=== PATIENT | female | born 1990 | race African-American/Black ===

== ENCOUNTER 2017-11-02 21:06 | Emergency (ER) | payer MEDICARE ==
[~2017-11-02] VITALS: Ht 160 cm; Wt 134.3 kg
[~2017-11-02 21:06] MED LIST: AMITRIPTYLINE H25 MG PO; FERROUS SULFAT325 M1 PO; LISINOPRIL5 MG PO; METFORMIN HCL500 MG PO; NOVOLIN N100 UNIT/1 SQ; OMEPRAZOLE20 M1 PO; PROVENTIL HFA6.7 GM PO; SYMBICORT 16010.2 GM INH
--- OUTSIDE RECORDS SUMMARY | 2017-11-02 21:09 | XMS REPORT ---
[facility] Address Unknown Phone Unavailable Care Team Providers Care Family Manager Name Role Phone Unavailable Unavailable Problems This patient has no known problems. Allergies, Adverse Reactions, Alerts This patient has no known allergies or adverse reactions. Medications This patient has no known medications. Encounters Start Date/Time End Date/Time Encounter Type Admission Type Attending [facility] Facility Care Department Encounter ID 2017-11-30 00:00:00 2017-11-30 00:00:00 Outpatient [facility] [id number] 2017-11-01 00:00:00 2017-11-01 00:00:00 Outpatient [facility] [id number] 2017-11-01 00:00:00 2017-11-01 00:00:00 Outpatient [facility] [id number] 2017-11-01 00:00:00 2017-11-01 00:00:00 Outpatient [facility] [id number] 2017-11-01 00:00:00 2017-11-01 00:00:00 Outpatient [facility] [id number] 2017-10-31 00:00:00 2017-10-31 00:00:00 Outpatient [facility] [id number] 2017-10-05 13:25:52 2017-10-05 13:25:52 Outpatient [facility] [id number] 2017-09-21 13:10:26 2017-09-21 13:10:26 Outpatient [facility] [id number] 2017-09-20 14:09:57 2017-09-20 14:09:57 Outpatient [facility] [id number] 2017-09-14 09:45:43 2017-09-14 09:45:43 Outpatient [facility] [id number] 2017-09-13 00:00:00 2017-09-13 00:00:00 Outpatient [facility] [id number] 2017-09-13 00:00:00 2017-09-13 00:00:00 Outpatient [facility] [id number] 2017-09-06 15:40:21 2017-09-06 15:40:21 Outpatient [facility] [id number] 2017-08-17 00:00:00 2017-08-17 00:00:00 Outpatient [facility] [id number] 2017-07-15 00:00:00 2017-07-15 00:00:00 Outpatient [facility] [id number] 2017-07-12 00:00:00 2017-07-12 00:00:00 Outpatient [facility] [id number] 2017-05-25 00:00:00 2017-05-25 00:00:00 Outpatient [facility] [id number] 2017-05-20 10:31:27 2017-05-20 10:31:27 Outpatient [facility] [id number] 2017-05-16 14:26:14 2017-05-16 14:26:14 Outpatient [facility] [id number]
--- OUTSIDE RECORDS SUMMARY | 2017-11-02 21:09 | XMS REPORT | Clinical Summary ---
Author Author [facility] Organization [facility] Address Unknown Phone Unavailable Care Team Providers Care Security Compliance Engineer Name Role Phone Asked, Pcp PCP Unavailable Allergies Active Allergy Reactions Severity Noted Date Comments Cyclosporine Itching, Rash Low 08/05/2009 Morphine Rash Low 05/16/2017 Current Medications Prescription Sig. Disp. Refills Start End Date Status Date lisinopril Take by mouth. 12/03/19 Active (PRINIVIL,ZESTRIL) 5 mg 17 tablet codeine-guaifenesin Take by mouth. 12/09/19 Active (GUAIFENESIN AC) 10-100 17 mg/5 mL liquid nebulizer accessories by [facility] [place]Non-Drug; Combo 12/09/19 Active misc Route) route Dx J45.40. 17 budesonide-formoterol Inhale. 12/01/19 Active (SYMBICORT) 160-4.5 17 mcg/actuation inhaler traZODone (DESYREL) 100 Take by mouth. 09/22/19 Active MG tablet 17 omeprazole (PriLOSEC) 20 Take by mouth. 10/12/19 Active MG capsule 17 ciclesonide 37 Inhale 1 spray by each 12/07/19 Active mcg/actuation HFA aerosol nostril daily 17 inhaler Therapeutic substitution for Nasonex per P&T pen needle, diabetic 30 Inject insulin once 06/17/20 Active gauge x 1/3" needle daily. 16 blood sugar diagnostic Check fasting blood and 2 06/15/20 Active strips strip test strips hour post-prandial sugars 16 daily- on insulin. ferrous sulfate 325 (65 Take by mouth. 12/09/19 Active FE) MG tablet 16 PARoxetine (PAXIL) 20 MG Take by mouth. 06/02/20 Active tablet 15 blood-glucose meter misc Use as directed.. 06/28/20 Active 14 albuterol (PROAIR Inhale. 12/01/19 Active HFA,PROVENTIL 17 HFA,VENTOLIN HFA) 90 mcg/actuation inhaler albuterol (ACCUNEB) 2.5 Inhale. 12/09/19 Active mg /3 mL (0.083 %) 17 nebulizer solution pregabalin (LYRICA) 50 MG Take by mouth. 06/15/20 Active capsule 16 blood sugar diagnostic Use as directed to test 100 strip 0 05/15/20 Active strips (glucose blood) blood sugar 17 strip test strips albuterol (PROVENTIL) 2.5 INHALE 1 VIAL BY MOUTH 6 12/09/19 05/15/20 Discontin mg /3 mL (0.083 %) EVERY 6 HOURS NEEDED 17 17 ued nebulizer solution FOR WHEEZING OR SHORTNESS OF BREATH levoFLOXacin (LEVAQUIN) TAKE 1 TABLET EVERY DAY 0 12/08/19 03/30/20 Discontin 750 MG tablet BY MOUTH UNTILL ALL IS 17 17 ued GONE insulin detemir (LEVEMIR) Inject 35 Units under the 03/31/20 Discontin 100 unit/mL injection skin nightly. 17 ued traMADol (ULTRAM) 50 mg Take 50 mg by mouth 2 04/29/20 Discontin tablet (two) times a day. 17 ued metFORMIN (GLUCOPHAGE) Take 1,000 mg by mouth 2 0 03/24/20 05/15/20 Discontin 500 mg tablet (two) times a day. 17 17 ued LYRICA 50 mg capsule Take 50 mg by mouth 2 0 03/24/20 05/15/20 Discontin (two) times a day. 17 17 ued insulin detemir (LEVEMIR) Inject 35 Units under the 4.9 mL 0 03/31/20 03/31/20 Discontin 100 unit/mL injection skin 2 (two) times a day 17 17 ued for 7 days. metoclopramide (REGLAN) 5 Infuse 1 mL (5 mg total) 2 mL 0 03/31/20 03/31/20 Discontin mg/mL injection into a venous catheter 17 17 ued every 6 (six) hours as needed for nausea or vomiting for up to 7 days. insulin DETEMIR (LEVEMIR Inject 35 Units under the 3 mL 0 03/31/20 04/07/20 FLEXTOUCH) 100 unit/mL (3 skin 2 (two) times a day 17 17 mL) insulin pen for 7 days. clindamycin (CLEOCIN HCL) Take 1 capsule (300 mg 21 capsule 0 05/06/20 300 MG capsule total) by mouth 3 (three) 17 17 times a day for 7 days. traMADol (ULTRAM) 50 mg Take 1 tablet (50 mg 10 tablet 0 04/29/20 tablet total) by mouth every 6 17 17 (six) hours as needed for moderate pain for up to 7 days. melatonin 1 mg tablet Take 2 tablets (2 mg 60 tablet 0 04/30/20 total) by mouth nightly 17 17 for 30 days. acetaminophen-codeine Take 1-2 tablets by mouth 20 tablet 0 05/02/20 05/09/20 (TYLENOL WITH CODEINE #3) every 6 (six) hours as 17 17 300-30 mg per tablet needed for mild pain or moderate pain (no driving) for up to 7 days. sulfamethoxazole-trimetho Take 2 tablets by mouth 2 40 tablet 0 05/15/20 Discontin prim (BACTRIM DS) 800-160 (two) times a day for 10 17 17 ued mg per tablet days. insulin ASPART (NovoLOG) Inject under the skin. 11/11/19 05/22/20 Discontin 100 unit/mL insulin pen 17 17 ued metFORMIN (GLUCOPHAGE) Take by mouth. 11/07/19 05/15/20 Discontin 500 mg tablet 16 17 ued insulin DETEMIR (LEVEMIR Inject 35 Units under the 21 mL 0 05/15/20 06/14/20 FLEXTOUCH) 100 unit/mL (3 skin 2 (two) times a day 17 17 mL) insulin pen for 30 days. insulin syringe-needle 1 Syringe 2 (two) times a 100 each 0 05/15/20 06/14/20 U-100 syringe day for 30 days. 17 17 metFORMIN (GLUCOPHAGE) Take 2 tablets (1,000 mg 120 tablet 0 05/15/20 06/14/20 500 mg tablet total) by mouth 2 (two) 17 17 times a day with meals for 30 days. azithromycin (ZITHROMAX) Take first 2 tablets 6 tablet 0 05/15/20 250 MG tablet together, then 1 every day until finished. insulin ASPART (NovoLOG) Inject 5 Units under the 4.5 mL 0 05/22/20 06/21/20 100 unit/mL insulin pen skin 3 (three) times a day with meals for 30 days. keTOROlac (TORadol) 10 mg Take 1 tablet (10 mg 20 tablet 0 05/22/20 05/27/20 tablet total) by mouth every 6 (six) hours as needed for moderate pain for up to 5 days. Active Problems Problem Noted Date Lower abdominal pain 03/31/2017 Non-intractable vomiting with nausea 03/31/2017 CAROLIN (obstructive sleep apnea) 03/31/2017 Chronic asthma 03/31/2017 Acute cystitis without hematuria 03/31/2017 Hyperglycemia 03/30/2017 SOB (shortness of breath) 01/21/2017 Chest pain 01/21/2017 Encounters Date Type Specialty Care Team Description 05/22/2017 Emergency Emergency Medicine Demetria Durbin MD Chest pain, unspecified type (Primary Dx) 05/14/2017 Emergency Emergency Medicine Rehrer, Rubio Henriquez, Hyperglycemia (Primary - Dx); 05/15/2017 Bronchitis 05/14/2017 Emergency Emergency Medicine Abad Arriaga, Hyperglycemia (Primary DO Dx); Dyspnea, unspecified type; Secondary hypertension 05/05/2017 Emergency Emergency Medicine Maribell Burt MD Complicated abscess (Primary Dx); Elevated blood pressure 05/02/2017 Emergency Emergency Medicine Leonor Escobar MD Abscess of left axilla (Primary Dx); Hyperglycemia; Dehydration; Hyponatremia; Tachycardia 04/29/2017 Emergency Emergency Medicine Leonor Escobar MD Sepsis, due to - unspecified organism 04/30/2017 (Primary Dx); Abscess of arm, left; Type 2 diabetes mellitus with hyperglycemia, with long-term current use of insulin; Tachycardia; Leukocytosis, unspecified type 03/30/2017 Emergency General Internal Medicine Carmen Murrieta MD Hyperglycemia (Primary - Alisha Valdez MD Dx) 03/31/2017 Gladis Corbett MD 01/21/2017 Office Visit Cardiology Yannick Escudero MD SOB (shortness of breath) (Primary Dx); Chest pain, unspecified type after 11/01/2016 Family History Medical History Relation Name Comments Diabetes Father Heart failure Father Diabetes Mother Heart failure Mother Relation Name Status Comments Father Alive Mother Alive Social History Tobacco Use Types Packs/Day Years Used Date Never Smoker Smokeless Tobacco: Never Used Alcohol Use Drinks/Week oz/Week Comments No Sex Assigned at Date Recorded Not on file Last Filed Vital Signs Vital Sign Reading Time Taken Blood Pressure 105/72 05/22/2017 10:35 PM CDT Pulse 74 05/22/2017 10:45 PM CDT Temperature 36.9 C (98.4 F) 05/22/2017 10:35 PM CDT Respiratory Rate 21 05/22/2017 10:45 PM CDT Oxygen Saturation 96% 05/22/2017 10:35 PM CDT Inhaled Oxygen - - Concentration Weight 144 kg (317 lb 7.4 oz) 05/14/2017 11:51 PM CDT Height 160 cm (5' 3") 05/22/2017 7:14 PM CDT Body Mass Index 56.24 05/14/2017 11:51 PM CDT Plan of Treatment Health Maintenance Due Date Last Done Comments FOOT EXAM 02/07/1998 OPHTHALMOLOGY EXAM 02/07/1998 URINE MICROALBUMIN 02/07/1998 PAP SMEAR 02/07/2009 INFLUENZA VACCINE 03/15/2017 Procedures Procedure Name Priority Date/Time Associated Diagnosis Comments KS CRITICAL CARE, E/M Routine 05/15/2017 Results for this 30-74 MINUTES 3:17 AM CDT procedure are in the results section. KS DRAIN SKIN ABSCESS Routine 05/10/2017 Results for this SIMPLE 9:40 PM CDT procedure are in the results section. GENERAL Routine 05/05/2017 Results for this 6:49 PM CDT procedure are in the results section. KS DRAIN SKIN ABSCESS Routine 05/01/2017 Results for this SIMPLE 12:32 PM CDT procedure are in the results section. after 11/01/2016 Results * POC glucose (05/22/2017 10:31 PM) Only the most recent of 13 results within the time period is included. Component Value Ref Range POC glucose 476 (HH) 65 - 99 mg/dL Comment: [facility] Notified RN Meter ID: [id number] Cigar Head Pegger: Maritza Knight Performing Laboratory [facility] DEPARTMENT OF PATHOLOGY AND GENOMIC MEDICINE [address] [place] [address] * CT Chest Wo Contrast (05/22/2017 9:29 PM) Specimen Performing Laboratory [facility] [address] [place] [address] Narrative EXAMINATION: CT CHEST WO CONTRAST CLINICAL HISTORY: abnormal cxr TECHNIQUE: Multiple axial images were obtained from the lung apices to the lung bases without the administration of intravenous contrast.The lack of intravenous contrast reduces the sensitivity of detecting solid organ disease and evaluating vasculature. High-resolution, prone, expiratory, coronal, and sagittal reformats were obtained.CT imaging was performed with iterative reconstruction technique and/ or automated exposure control to reduce radiation dose. COMPARISON: None. FINDINGS: Heart size is normal. The aorta measures within normal limits.The pulmonary artery is within normal limits. There is no enlarged mediastinal lymph node. No pulmonary infiltrate or mass is seen. Decreased attenuation of the liver is compatible fatty infiltration. Spleen, pancreas, adrenals, and kidneys are within normal limits in their visible portions. Suspicious osseous lesion is not seen. IMPRESSION: No acute pulmonary process. Procedure Note Interface, Radiology Results Incoming - 05/22/2017 9:36 PM CDT EXAMINATION: CT CHEST WO CONTRAST CLINICAL HISTORY: abnormal cxr TECHNIQUE: Multiple axial images were obtained from the lung apices to the lung bases without the administration of intravenous contrast.The lack of intravenous contrast reduces the sensitivity of detecting solid organ disease and evaluating vasculature. High-resolution, prone, expiratory, coronal, and sagittal reformats were obtained.CT imaging was performed with iterative reconstruction technique and/ or automated exposure control to reduce radiation dose. COMPARISON: None. FINDINGS: Heart size is normal. The aorta measures within normal limits. The pulmonary artery is within normal limits. There is no enlarged mediastinal lymph node. No pulmonary infiltrate or mass is seen. Decreased attenuation of the liver is compatible fatty infiltration. Spleen, pancreas, adrenals, and kidneys are within normal limits in their visible portions. Suspicious osseous lesion is not seen. IMPRESSION: No acute pulmonary process. * XR Chest 1 Vw Portable (05/22/2017 7:58 PM) Only the most recent of 2 results within the time period is included. Specimen Performing Laboratory [facility] [address] [place] [address] Narrative Examination:XR CHEST 1 VW PORTABLE Clinical history:"Chest Pain" Comparison:05/14/2017 IMPRESSION: There are no new alveolar opacities within either lung.Bibasilar opacities consistent with atelectasis versus small infiltrates appear unchanged. No pneumothoraces are identified. The cardiomediastinal silhouette is unchanged. The bones of the chest are unchanged. [facility]-[id number] Procedure Note Interface, Radiology Results Incoming - 05/22/2017 8:05 PM CDT Examination: XR CHEST 1 VW PORTABLE Clinical history: "Chest Pain" Comparison: 05/14/2017 IMPRESSION: There are no new alveolar opacities within either lung. Bibasilar opacities consistent with atelectasis versus small infiltrates appear unchanged. No pneumothoraces are identified. The cardiomediastinal silhouette is unchanged. The bones of the chest are unchanged. [facility]-[id number] * Estimated GFR (05/22/2017 7:42 PM) Only the most recent of 7 results within the time period is included. Component Value Ref Range GFR Non Af Amer >90 mL/min/1.73 m2 GFR Af Amer >90 mL/min/1.73 m2 Comment: Chronic kidney disease: <60 mL/min/1.73m2 Kidney failure: <15 mL/min/1.73m2 The estimated GFR is calculated from the IDMS-traceable Modification of Diet in Renal Disease Equation. The accuracy of the calculation is poor when the creatinine is normal. Calculated values >90 mL/min/1.73m2 are not reported. This equation has not been validated in children (<18 years), women, the elderly (>70 years), or ethnic groups other than Caucasians and Americans. Specimen Performing Laboratory Plasma specimen DEPARTMENT OF PATHOLOGY AND GENOMIC MEDICINE, [facility] [address] [place] [address] [place] [address] * Troponin, I-Stat (05/22/2017 7:42 PM) Component Value Ref Range Troponin, I-Stat 0.00 0.00 - 0.08 ng/mL Comment: 0.09 - 1.49 ng/ml May indicate increased risk of acute coronary syndrome. >=1.5 ng/ml Consistent with acute myocardial infarction. The diagnostic value of a single normal or non-diagnostic result is questionable. Serial samples at 2-6 hour intervals are required to rule out acute myocardial injury. Specimen Performing Laboratory Plasma specimen [facility] OF PATHOLOGY AND GENOMIC MEDICINE[address] [address] * B natriuretic pep, I-Stat (05/22/2017 7:42 PM) Component Value Ref Range BNP, I-Stat <20 0 - 100 pg/mL Specimen Performing Laboratory Blood [facility] PATHOLOGY AND [employer] (acquired by [employer]) MEDICINE[address] [address] * CBC with platelet and differential (05/22/2017 7:42 PM) Only the most recent of 5 results within the time period is included. Component Value Ref Range WBC 10.76 4.50 - 11.00 k/uL RBC 4.47 4.20 - 5.50 m/uL HGB 11.3 (L) 12.0 - 16.0 g/dL HCT 33.8 (L) 37.0 - 47.0 % MCV 75.6 (L) 82.0 - 100.0 fL MCH 25.3 (L) 27.0 - 34.0 pg MCHC 33.4 31.0 - 37.0 g/dL RDW - SD 38.7 37.0 - 55.0 fL MPV 10.2 8.8 - 13.2 fL Platelet count 378 150 - 400 k/uL Neutrophils 67.1 39.0 - 69.0 % Lymphocytes 25.7 25.0 - 45.0 % Monocytes 6.3 0.0 - 10.0 % Eosinophils 0.6 0.0 - 5.0 % Basophils 0.3 0.0 - 1.0 % Specimen Performing Laboratory Blood [facility] OF PATHOLOGY AND GENOMIC MEDICINE[address] [address] * Creatine kinase, total (CPK) (05/22/2017 7:42 PM) Component Value Ref Range Creatine kinase 99 30 - 190 U/L Specimen Performing Laboratory Plasma specimen [facility] OF PATHOLOGY AND GENOMIC MEDICINE[address] [address] * Comprehensive metabolic panel (05/22/2017 7:42 PM) Only the most recent of 5 results within the time period is included. Component Value Ref Range Sodium 131 128 - 145 mEq/L Potassium 4.3 3.6 - 5.1 mEq/L CO2 24 18 - 33 mEq/L Chloride 98 98 - 108 mEq/L Glucose 651 (HH) 73 - 118 mg/dL Comment: Results called to and read back by DR. DEMETRIA DURBIN @ [facility] 05/22/2017 20:00 by EX Calcium 8.5 8.0 - 10.3 mg/dL BUN 9 7 - 22 mg/dL Creatinine 0.5 (L) 0.6 - 1.2 mg/dL Alkaline phosphatase 68 42 - 141 U/L ALT 24 10 - 47 U/L AST 21 11 - 38 U/L Total bilirubin 0.4 0.2 - 1.6 mg/dL Albumin 2.9 (L) 3.3 - 5.5 g/dL Protein 7.1 6.4 - 8.1 g/dL Anion gap 9 7 - 15 mEq/L Comment: Starting from November , anion gap calculation no longer incorporates potassium. Please note the change. A/G ratio 0.7 0.7 - 3.8 Specimen Performing Laboratory Plasma specimen DEPARTMENT OF PATHOLOGY AND GENOMIC MEDICINE, [facility] [address] [place] [address] * ECG 12 lead (05/22/2017 7:18 PM) Only the most recent of 3 results within the time period is included. Component Value Ref Range Ventricular rate 87 Atrial rate 87 KS interval 134 QRSD interval 70 QT interval 362 QTC interval 435 P axis 1 52 QRS axis 1 38 T wave axis 20 EKG impression Normal sinus rhythm-Low voltage QRS-Borderline ECG- Specimen Performing Laboratory [facility] [address] [place] [address] * CRITICAL CARE (05/15/2017 3:17 AM) Judy Arriaga DO 05/15/20173:17 AM Critical Care Performed by: ABAD ARRIAGA Authorized by: ABAD ARRIAGA Critical care provider statement: Critical care time (minutes):40 Critical care time was exclusive of:Separately billable procedures and treating other patients Critical care was necessary to treat or prevent imminent or life-threatening deterioration of the following conditions:Endocrine crisis Critical care was time spent personally by me on the following activities:Blood draw for specimens, development of treatment plan with patient or surrogate, evaluation of patient's response to treatment, examination of patient, obtaining history from patient or surrogate, vascular access procedures, review of old charts, re-evaluation of patient's condition, pulse oximetry, ordering and review of radiographic studies, ordering and review of laboratory studies and ordering and performing treatments and interventions Esvin 'yes' if you are taking over critical care for this patient from another provider.: no * Basic metabolic panel (05/15/2017 12:16 AM) Only the most recent of 2 results within the time period is included. Component Value Ref Range Glucose 598 (HH) 73 - 118 mg/dL Comment: Results called to and read back by DR. RUBIO GREEN at [facility] 05/15/2017 00:31 by MARIANA. BUN 8 7 - 22 mg/dL Calcium 9.4 8.0 - 10.3 mg/dL Creatinine 0.8 0.6 - 1.2 mg/dL Sodium 131 128 - 145 mEq/L Potassium 4.2 3.6 - 5.1 mEq/L Comment: Specimen moderately hemolyzed PER DR. RUBIO GREEN RESULTS CAN BE RELEASE 05/15/2017 00:36 EX Corrected result; previously reported as 4.2 on 05/15/2017 at 00:32 by ADA Chloride 94 (L) 98 - 108 mEq/L CO2 23 18 - 33 mEq/L Anion gap 14 7 - 15 mEq/L Comment: Starting from November , anion gap calculation no longer incorporates potassium. Please note the change. Specimen Performing Laboratory Plasma specimen DEPARTMENT OF PATHOLOGY AND GENOMIC MEDICINE, [facility] [address] [place] [address] [place] [address] * Urinalysis screen and microscopy, with reflex to culture (05/14/2017 10:35 PM) Only the most recent of 2 results within the time period is included. Component Value Ref Range Specimen site Clean catch Color, UA Yellow Appearance, UA Clear Specific gravity, UA 1.010 1.001 - 1.035 pH, UA 6.0 5.0 - 8.5 Protein, UA Negative Negative Glucose, UA 2+ (A) Negative Ketones, UA Negative Negative Bilirubin, UA Negative Negative Blood, UA Moderate (A) Negative Nitrite, UA Negative Negative Urobilinogen, UA <2.0 <2.0 Leukocyte esterase, UA Negative Negative Epithelial cells, UA <1 /HPF WBC, UA None seen 0 - 4 /HPF RBC, UA 12 (H) 0 - 2 /HPF Bacteria, UA None seen None seen Yeast, UA None seen Yeast with pseudohyphae, None seen UA Specimen Performing Laboratory Urine DEPARTMENT OF PATHOLOGY AND GENOMIC MEDICINE, [address] [place] [address] * hCG qualitative, urine screen (05/14/2017 10:35 PM) Only the most recent of 2 results within the time period is included. Component Value Ref Range hCG qualitative, urine NegativeComment: Sensitivity of HCG test: 25 mIU/mL Specimen Performing Laboratory Urine DEPARTMENT OF PATHOLOGY AND GENOMIC MEDICINE[address] [place] [address] * Bedside glucose (05/14/2017 10:32 PM) Specimen Performing Laboratory Blood * Beta hydroxybutyrate (05/14/2017 10:08 PM) Only the most recent of 2 results within the time period is included. Component Value Ref Range Beta hydroxybutyrate 0.12Comment: Test performed at [facility] 0.02 - 0.27 mmol/L [facility]. Specimen Performing Laboratory Serum [facility] DEPARTMENT OF PATHOLOGY AND GENOMIC MEDICINE [address] [place] [address] * XR Chest 2 Vw (05/14/2017 9:59 PM) Specimen Performing Laboratory [facility] [address] [place] [address] Narrative EXAMINATION: XR CHEST 2 VW CLINICAL HISTORY: SHORTNESS OF BREATH COMPARISON:03/31/2017 chest x-ray. IMPRESSION: The lungs are clear. No pleural effusion or pneumothorax. The cardiomediastinal silhouette is normal. No acute osseous abnormalities. [facility]-[id number] Procedure Note Interface, Radiology Results Incoming - 05/14/2017 10:03 PM CDT EXAMINATION: XR CHEST 2 VW CLINICAL HISTORY: SHORTNESS OF BREATH COMPARISON: 03/31/2017 chest x-ray. IMPRESSION: The lungs are clear. No pleural effusion or pneumothorax. The cardiomediastinal silhouette is normal. No acute osseous abnormalities. [facility]-[id number] * INCISION AND DRAINAGE (05/10/2017 9:40 PM) Narrative Leonor Escobar MD 05/10/20179:40 PM I&D/Aspiration/Amputation Performed by: LEONOR ESCOBAR Authorized by: LEONOR ESCOBAR Consent: Consent obtained:Verbal Consent given by:Patient Risks discussed:Incomplete drainage, infection, pain and bleeding Alternatives discussed:No treatment Location: Type:Abscess Location: left axilla. Pre-procedure details: Procedure prep: Normal Saline. Sedation: Sedation type: None. Anesthesia (see MAR for exact dosages): Anesthesia method: Patient declined lidocaine. Procedure details: Complexity:Simple Needle aspiration: No Incision types:Exploration (Trace blood) Size (cm):1 Wound management:Irrigated with saline (1L NS) Drainage:Purulent Drainage amount:Copious Packing material: plain gauze. Post-procedure details: Patient tolerance of procedure:Tolerated well, no immediate complications * GENERAL (05/05/2017 6:49 PM) Narrative Maribell Burt MD 05/05/20176:49 PM General Performed by: HANK THAKUR Authorized by: MARIBELL BURT Consent: Consent obtained:Verbal Consent given by:Patient Indications: Indications:Repacking site of I&D Pre-procedure details: Procedure prep: Saline irrigation. Anesthesia (see MAR for exact dosages): Anesthesia method:None Post-procedure details: Patient tolerance of procedure:Tolerated well, no immediate complications Comments: The cavity was packed with half-inch plain gauze. * Blood culture, aerobic & anaerobic (05/02/2017 11:55 AM) Only the most recent of 2 results within the time period is included. Component Value Ref Range Blood culture isolate No growth after 5 days of incubation. Comment: Specimen Information Specimen Source: Blood Specimen Site: Hand, right Specimen Performing Laboratory Blood - Hand, right [facility] DEPARTMENT OF PATHOLOGY AND GENOMIC MEDICINE [address] [place] [id number] * Lactic acid level (05/02/2017 11:55 AM) Only the most recent of 2 results within the time period is included. Component Value Ref Range Lactic acid 2.1 0.5 - 2.2 mmol/L Specimen Performing Laboratory Blood DEPARTMENT OF PATHOLOGY AND GENOMIC MEDICINE, [address] [place] [address] * INCISION AND DRAINAGE (05/01/2017 12:32 PM) Narrative Leonor Escobar MD 05/01/2017 12:32 PM I&D/Aspiration/Amputation Performed by: TRUDY ROGERS Authorized by: LEONOR ESCOBAR Consent: Consent obtained:Verbal Consent given by:Patient Risks discussed:Bleeding, incomplete drainage and infection Alternatives discussed:No treatment Location: Type:Abscess Location:Upper extremity Upper extremity location: left axilla Pre-procedure details: Skin preparation:Betadine Anesthesia (see MAR for exact dosages): Anesthesia method:Local infiltration Local anesthetic:Lidocaine 1% w/o epi Procedure details: Complexity:Simple Needle aspiration: No Incision types:Single straight Scalpel blade:11 Wound management:Probed and deloculated Drainage:Serous Drainage amount:Copious Wound treatment:Wound left open Packing materials:1/2 in iodoform gauze Post-procedure details: Patient tolerance of procedure:Tolerated well, no immediate complications * Urine drugs of abuse screen (03/31/2017 8:23 AM) Component Value Ref Range Amphetamine screen, urine Negative Barbiturate screen, urine Negative Benzodiazepine screen, Negative urine Cannabinoid screen, urine Negative Cocaine screen, urine Negative Methadone metabolite Negative (EDDP), urine Opiates screen, urine Positive (A) Oxycodone screen, urine Negative Phencyclidine screen, Negative urine Tricyclic screen, urine Negative Comment: Drug screen minimum concentration of detectability Amphetamines 1000 ng/mL Barbiturates 200 ng/mL Benzodiazepines 300 ng/mL Cocaine 300 ng/mL Methadone 3 00 ng/mL Opiates 300 ng/mL Oxycodone 3 00 ng/mL Phencyclidine 25 ng/mL Cannabinoids 50 ng/mL Tricyclics 1000 ng/mL Negative test results indicates presumptive evidence of lack of clinically significant drug concentration in this urine specimen. Positive test results are presumptive evidence of clinically significant drug concentration in this urine specimen. Testing performed for medical purposes only. Specimen Performing Laboratory Urine [facility] DEPARTMENT OF PATHOLOGY AND GENOMIC MEDICINE [address] [place] [id number] * Gram stain (03/31/2017 8:14 AM) Component Value Ref Range Gram stain result No WBC's or organisms seen. Comment: Specimen Information Specimen Source: Urine Specimen Site: See UA Specimen Performing Laboratory Urine [facility] DEPARTMENT OF PATHOLOGY AND GENOMIC MEDICINE [address] [place] [id number] * Urine culture (03/31/2017 8:14 AM) Component Value Ref Range Urine culture isolate Staphylococcus aureus 10-4 cfu/ml (A) Comment: Specimen Information Specimen Source: Urine Specimen Site: See UA Urine culture isolate Mixed Gram positive viviane 10-2 cfu/ml (A) Specimen Performing Laboratory Urine [facility] DEPARTMENT OF PATHOLOGY AND GENOMIC MEDICINE [address] [place] [id number] Organism Antibiotic Method Susceptibility Staphylococcus aureus Ampicillin JEAN-PAUL mcg/mL: Resistant Staphylococcus aureus Clindamycin JEAN-PAUL <=0.5 mcg/mL: Susceptible Staphylococcus aureus Erythromycin JEAN-PAUL >4 mcg/mL: Resistant Staphylococcus aureus Nitrofurantoin JEAN-PAUL <=16 mcg/mL: Susceptible Staphylococcus aureus Levofloxacin JEAN-PAUL >4 mcg/mL: Resistant Staphylococcus aureus Linezolid JEAN-PAUL 2 mcg/mL: Susceptible Staphylococcus aureus Oxacillin JEAN-PAUL 0.5 mcg/mL: Susceptible Staphylococcus aureus Penicillin G JEAN-PAUL >1 mcg/mL: Resistant Staphylococcus aureus Rifampin JEAN-PAUL <=0.5 mcg/mL: Susceptible Staphylococcus aureus Trimethoprim/Sulfamethoxa JEAN-PAUL <=0.5/9.5 mcg/mL: zole Susceptible Staphylococcus aureus Tetracycline JEAN-PAUL <=0.5 mcg/mL: Susceptible Staphylococcus aureus Vancomycin JEAN-PAUL 1 mcg/mL: Susceptible * Troponin (03/31/2017 5:20 AM) Component Value Ref Range Troponin <0.30 0.00 - 0.30 ng/mL Comment: 0.30 - 1.49 ng/ml May indicate increased risk of acute coronary syndrome. >=1.5 ng/ml Consistent with acute myocardial infarction. The diagnostic value of a single normal or non-diagnostic result is questionable. Serial samples at 2-6 hour intervals are required to rule out acute myocardial injury. Specimen Performing Laboratory Plasma specimen [facility] DEPARTMENT OF PATHOLOGY AND [facility] [address] [place] [phone] * Phosphorus level (03/31/2017 5:20 AM) Component Value Ref Range Phosphorus 4.2 2.4 - 4.5 mg/dL Specimen Performing Laboratory Plasma specimen [facility] DEPARTMENT OF PATHOLOGY AND GENOMIC MEDICINE [address] [place] [phone] * Magnesium level (03/31/2017 5:20 AM) Component Value Ref Range Magnesium 1.7 1.6 - 2.6 mg/dL Specimen Performing Laboratory Plasma specimen [facility] DEPARTMENT OF PATHOLOGY AND GENOMIC MEDICINE [address] [place] [phone] * Lipase level (03/31/2017 5:20 AM) Component Value Ref Range Lipase 24 13 - 60 U/L Specimen Performing Laboratory Plasma specimen [facility] DEPARTMENT OF PATHOLOGY AND GENOMIC MEDICINE [address] [place] [phone] * Hemoglobin A1c (03/31/2017 5:20 AM) Component Value Ref Range Hemoglobin A1C 12.3 (H) 4.0 - 5.6 % Comment: HbA1c cutoffs for diagnosing diabetes: 4.0% - 5.6%=normal 5.7% - 6.4%=increased risk for diabetes (prediabetes) >=6.5%=diabetes Goals for glycemic control (ADA 2016) < 7.0% Target for non adults with diabetes. More or less stringent targets may be appropriate for individual patients. <7.5% Target for Children and adolescents with type 1 diabetes. A hemoglobin variant peak was detected in the A1c HPLC study. This peak did not seem to interfere with the A1c percentage calculation. However, if clinically indicated, hemoglobin electrophoresis should be ordered to further evaluate this finding. This variant may impact the red blood cell turnover rate. The clinical utility of Hemoglobin A1c measurement for monitoring long-term glucose control in the setting of hemoglobin variants has not been well characterized. Specimen Performing Laboratory [facility] DEPARTMENT OF PATHOLOGY AND GENOMIC MEDICINE [address] [place] [phone] * Lipid panel (03/31/2017 5:20 AM) Component Value Ref Range Cholesterol 159 <200 mg/dL Triglycerides 140 <150 mg/dL HDL cholesterol 36 (L) >40 mg/dL LDL cholesterol 101 (H)Comment: Result obtained by direct LDL <100 mg/dL measurement Lipid panel SeeBelow interpretation Comment: Total Cholesterol (mg/dL) <200 Desirable 200-239 Borderline-high >=240 High Triglycerides (mg/dL) <150 Normal 150-199 Borderline-high 200-499 High >=500 Very high HDL Cholesterol (mg/dL) <40 Low (male) <40 Low (female) LDL Cholesterol (mg/dL) <100 Optimal 100-129 Near or above optimal 130-159 Borderline-high 160-189 High >=190 Very high Risk Catergories that modify LDL goals. Risk Catergories LDL goal (mg/dL) CHD and CHD risk equivalent <100 (10-year risk >20%) Multiple (2+) risk factors <130 (10-year risk=<20%) 0-1 risk factors <160 (<10-year risk) Defining levels of lipids in metabolic syndrome Triglycerides >=150 mg/dL HDL Cholesterol Men <40 mg/dL Women <40 mg/dL Non-HDL cholesterol is a second target for therapy in persons with high triglycerides (>=200 mg/dL) Specimen Performing Laboratory Plasma specimen [facility] DEPARTMENT OF PATHOLOGY AND GENOMIC MEDICINE [address] [place] [address] * Manual differential (03/30/2017 8:05 PM) Component Value Ref Range Manual differential PERFORMED Neutrophils 80.0 (H) 39.0 - 69.0 % Lymphocytes 12.0 (L) 25.0 - 45.0 % Monocytes 8.0 0.0 - 10.0 % Eosinophils 0.0 0.0 - 5.0 % Basophils 0.0 0.0 - 1.0 % Platelet slide review Janes slt incr Specimen Performing Laboratory DEPARTMENT OF PATHOLOGY AND GENOMIC MEDICINE, [address] [id number] * Urinalysis (03/30/2017 7:52 PM) Component Value Ref Range Glucose, UA 2+ (A) Negative Bilirubin, UA Negative Negative Ketones, UA Negative Negative Specific gravity, UA 1.015 1.001 - 1.035 Blood, UA Negative Negative pH, UA 5.0 5.0 - 8.5 Protein, UA 2+ (A) Negative Urobilinogen, UA <2.0 <2.0 Nitrite, UA Negative Negative Leukocyte esterase, UA Negative Negative Color, UA Yellow Appearance, UA Cloudy Specimen Performing Laboratory Urine DEPARTMENT OF PATHOLOGY AND GENOMIC MEDICINE, [address] [address] after 11/01/2016 Insurance Payer Benefit Subscriber ID Type Phone Address Plan / Group MEDICARE MEDICARE xxxxxxxxxx Medicare [place], [place] PART A [place] B MEDICAID MEDICAID xxxxxxxxx Medicaid
[2017-11-03 02:30] VITALS: BP 132/74
== END 2017-11-03 01:40 | disposition home or self-care (01) ==
LOC: FSED 21:06
DX: E11.65 Type 2 diabetes mellitus with hyperglycemia (principal); G62.9 Polyneuropathy, unspecified; Z91.14 Patient's other noncompliance with medication regimen; J45.909 Unspecified asthma, uncomplicated
CPT/HCPCS: 81003; 82948; 99283